=== PATIENT | male | born 1950 | race Caucasian/White ===

== ENCOUNTER 2016-10-19 18:07 | Emergency (ER) | payer MEDICARE, MEDICAID ==
[~2016-10-19] VITALS: Ht 165.1 cm; Wt 63.5 kg
[~2016-10-19 18:07] MED LIST: APAP/BUTALBITAL1 TA1 PO; CIPRO 500MG TA500 MG PO; CLINDAMYCIN HC300 MG PO; FLEXERIL10 MG PO; GABAPENTIN 600600 MG PO; HYDROCODONE1 TABLET PO; IBUPROFEN200 MG PO; LEVOFLOXACIN 5500 M1 PO; LORTAB 5/500 501 TAB PO; MEDROL 4MG. DOSE4 MG PO; NEURONTIN 300M300 MG PO; NICOTINE PATCH;21 MG TD; NOMEDS XX; PERCOCET 5/3251 EACH PO; PREDNISONE 20MG20 MG PO; TESSALON PERLE100 M1 PO; ULTRAM50 MG PO; VICODIN 5/500 T1 TAB PO; ZITHROMAX Z-PA250 M1 PO; ZOFRAN4 MG PO
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
[2016-10-19] MEDS ORDERED: NAPROSYN 500MG500 MG PO (19:18)
[2016-10-19] MEDS ORDERED: PREDNISONE 20MG20 MG PO (19:18)
[2016-10-19 19:22] VITALS: BP 152/89
== END 2016-10-19 19:22 | disposition home or self-care (01) ==
LOC: ER 18:07 → UTC 18:19 → ER 18:19 → UTC 19:22
DX: M54.2 Cervicalgia (principal); G89.29 Other chronic pain; I10 Essential (primary) hypertension; E78.5 Hyperlipidemia, unspecified; Z79.891 Long term (current) use of opiate analgesic; Z79.899 Other long term (current) drug therapy